=== PATIENT | male | born 1980 | race American Indian/Alaskan Native ===

== ENCOUNTER 2016-10-08 12:53 | Emergency (ER) | payer MEDICAID ==
[2016-10-08 13:02] VITALS: BP 138/86; PULSE 79; RESP 16; TEMP 97; O2SAT 99
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
== END 2016-10-08 16:41 | disposition home or self-care (01) ==
LOC: H.ER 12:53
DX: F07.81 Postconcussional syndrome (principal); S00.03XA Contusion of scalp, initial encounter; Y35.813A Legal intervention involving manhandling, suspect injured, initial encounter; Y92.89 Other specified places as the place of occurrence of the external cause